=== PATIENT | male | born 1955 | race Caucasian/White ===

== ENCOUNTER 2022-08-06 09:26 | Outpatient (RCR) | payer MEDICARE, OTHER | END 2022-08-29 | disposition home or self-care (01) | LOC: ONC 09:26 | PROVIDERS: ATTEND Radiology Radiation Oncology | DX: C61 Malignant neoplasm of prostate (principal) | CPT/HCPCS: 99205 ==

== ENCOUNTER 2022-10-03 05:35 | Outpatient (CLI) | payer MEDICARE ==
[~2022-10-03] VITALS: Ht 172.7 cm; Wt 60.0 kg
[2022-10-04] MEDS ORDERED: ATOR10TA66 PO (08:16)
[2022-10-04] MEDS ORDERED: LISI5TAB20 PO (08:16)
== END 2022-10-04 12:40 | disposition home or self-care (01) ==
LOC: PREOP 05:35
PROVIDERS: ATTEND Specialist
DX: Z01.818 Encounter for other preprocedural examination (principal)

== ENCOUNTER 2022-10-10 10:22 | Day surgery (SDC) | payer MEDICARE ==
[2022-10-10] VITALS (9 sets, daily range): BP systolic 101–144; BP diastolic 58–85
[~2022-10-10] VITALS: Ht 172.7 cm; Wt 60.0 kg
[~2022-10-10 10:22] MED LIST: ATOR10TA66 PO; LISI5TAB20 PO
[2022-10-10] MEDS ORDERED: LACTATED RINGERS 1,000 ML IV PRN (11:15)
--- NOTE | 2022-10-10 11:41 | Progress Note-Pre Operative ---
Pre-Operative Progress Note Date of Available H&P: Oct 02, 2022 Date H&P Reviewed: Oct 10, 2022 Time H&P Reviewed: 10:55 History & Physical: H&P Reviewed Changes from last HP see H&P addendum Pre-Operative Diagnosis: Prostate cancer cT1c, PSA 8.35, [place] 7 (3+4) Gissel WEBBER MD Oct 10, 2022 11:41
--- NOTE | 2022-10-10 11:47 | Discharge Inst-Simple/Standard ---
Discharge Inst-Standard Reconcile Patient Problems Problems Reviewed?: Yes Discharge Medications New, Converted or Re-Newed RX: Other (Patient has med at home.) Patient Instructions/Follow Up Plan of Care/Instructions/FU: 1) Treatment planning ct scan at [facility] cancer center on 10/25/22 at 1:00 pm. Please drink 1/2 bottle of oral contrast 30 minutes prior to coming in for scan (12:30 pm) Activity as Tolerated: Yes Discharge Diet: No Restrictions Gissel WEBBER MD Oct 10, 2022 11:47
[2022-10-10] MEDS ORDERED: LIDOCAINE PF 2% 5 ML (XYLOCAINE) VIAL ONE (13:23)
[2022-10-10] MEDS ORDERED: proPOfol 200 MG/20 ML (DIPRIVAN) VIAL IV ONE (13:23)
[2022-10-10] MEDS ORDERED: fentaNYL INJ 100 MCG/2 ML AMP ONE (13:23)
[2022-10-10] MEDS ORDERED: ONDANSETRON 4 MG/2 ML (SDV) Z0FRAN ONE (13:23)
[2022-10-10] MEDS ORDERED: SEVOFLURANE (ULTANE) 15 ML INHAL SOLN ONE (13:43)
--- NOTE | 2022-10-10 13:48 | Anesthesia-General Post-Op ---
General Patient Condition Mental Status/LOC: Same as Preop Cardiovascular: Satisfactory Nausea/Vomiting: Absent Respiratory: Satisfactory Pain: Controlled Complications: Absent Post Op Complications Complications None Follow Up Care/Instructions Patient Instructions None needed. Anesthesia/Patient Condition Patient Condition Patient is doing well, no complaints, stable vital signs, no apparent adverse anesthesia problems. No complications reported per nursing. RACH THOMPSON CRNA Oct 10, 2022 13:48
--- NOTE | 2022-10-10 13:49 | Progress Note-Post Operative ---
Post-Operative Progess Note Surgeon (s)/Phlebotomy Manager (s) Surgeon Gissel WEBBER MD Phlebotomy Manager: N/A Pre-Operative Diagnosis Prostate cancer cT1c, PSA 8.35, [place] 7 (3+4) Post-Operative Diagnosis Same as pre-op Procedure & Operative Findings Date of Procedure 10/10/22 Procedure Performed/Findings (1) placement of fiducial gold seed markers (2) injection of biodedgradable hydrogel prostate-rectal spacer utilizing the [employer] Lyssa system Anesthesia Type General Estimated Blood Loss Estimated blood loss (mL): None Specimens/Packing Specimens Removed N/A Packing: None Gissel WEBBER MD Oct 10, 2022 13:49
[2022-10-10] MEDS ORDERED: ONDANSETRON 4 MG/2 ML (SDV) Z0FRAN IVP PRN (14:00)
[2022-10-10] MEDS ORDERED: fentaNYL INJ 100 MCG/2 ML AMP IVP ONE (14:00)
== END 2022-10-10 15:25 | disposition home or self-care (01) ==
LOC: SDC 10:22
PROVIDERS: ATTEND Specialist
DX: C61 Malignant neoplasm of prostate (principal); F17.210 Nicotine dependence, cigarettes, uncomplicated
CPT/HCPCS: 55874; 55876; 87081; C1889

== ENCOUNTER 2022-10-25 12:46 | Outpatient (RCR) | payer MEDICARE | END 2022-10-30 | disposition home or self-care (01) | LOC: ONC 12:46 | PROVIDERS: ATTEND Radiology Radiation Oncology | DX: Z51.0 Encounter for antineoplastic radiation therapy (principal); C61 Malignant neoplasm of prostate | CPT/HCPCS: 77300; 77301; 77334; 77338 ==

== ENCOUNTER → 2022-11-27 | Outpatient (RCR) | payer MEDICARE | END | disposition home or self-care (01) | LOC: ONC 11-01 14:29 | PROVIDERS: ATTEND Radiology Radiation Oncology | DX: Z51.0 Encounter for antineoplastic radiation therapy (principal); C61 Malignant neoplasm of prostate; E78.00 Pure hypercholesterolemia, unspecified; I10 Essential (primary) hypertension | CPT/HCPCS: 77336; 77385 ==

== ENCOUNTER 2022-12-10 13:31 | Outpatient (RCR) | payer MEDICARE | END 2022-12-28 | disposition home or self-care (01) | LOC: ONC 13:31 | PROVIDERS: ATTEND Radiology Radiation Oncology | DX: Z51.0 Encounter for antineoplastic radiation therapy (principal); C61 Malignant neoplasm of prostate; E78.00 Pure hypercholesterolemia, unspecified; I10 Essential (primary) hypertension | CPT/HCPCS: 77336; 77385 ==

== ENCOUNTER 2023-01-17 09:25 | Outpatient (RCR) | payer MEDICARE | END 2023-01-27 | disposition home or self-care (01) | LOC: ONC 09:25 | PROVIDERS: ATTEND Radiology Radiation Oncology | DX: C61 Malignant neoplasm of prostate (principal); E78.00 Pure hypercholesterolemia, unspecified; I10 Essential (primary) hypertension | CPT/HCPCS: 84153; G0463; 36415; 99213 ==